=== PATIENT | male | born 1985 | race Caucasian/White ===

== ENCOUNTER 2019-02-02 21:24 | Emergency (ER) | payer MEDICAID ==
[~2019-02-02] VITALS: Ht 172.7 cm; Wt 68.0 kg
[2019-02-02] MEDS ORDERED: IOHEXOL 300 MG/ML 100ML BOTTLE IJ ONE (21:47)
[2019-02-03] MEDS ORDERED: ETOMIDATE (2MG/ML) 20ML VIAL IV ONE (01:49)
[2019-02-03] MEDS ORDERED: LORazepam 2MG/ML-1ML VIAL ONE (02:05)
[2019-02-03] MEDS ORDERED: HYDROmorphone HCL 2 MG/ML VL ONE (02:30)
[2019-02-03] MEDS ORDERED: cefTRIAXone 1GM/50ML D5W 50 ML IV ONE (02:46)
[2019-02-03 04:19] LABS: INR 1.04 (0.9-1.15); Partial Thromboplastin Time 27.2 sec (23.64-32.05)
[2019-02-03 04:33] LABS: Albumin 3.7 g/dL (3.4-5.0); BUN/Creatinine Ratio 19.8; Bilirubin, Total 0.3 mg/dL (0.2-1.0); Calcium 8.9 mg/dL (8.5-10.1); Potassium 3.6 mmol/L (3.5-5.1); Total Protein 6.8 g/dL (6.4-8.2)
[2019-02-03 05:12] LABS: Basophils # (auto) 0 uL; Basophils % (auto) 0.1 % (0.0-2.0); Eosinophils # (auto) 0 uL; Eosinophils % (auto) 0.2 % (0.0-7.0); Hematocrit 46.2 % (41.0-53.0); Hemoglobin 15.4 g/dL (13.5-17.5); Lymphocytes # (auto) 0.7 uL; Lymphocytes % (auto) 5.5 % (10.0-50.0); Mean Corpuscular Hemoglobin 30.2 pg (28.0-32.0); Mean Corpuscular Hgb Conc. 33.3 g/dL (32.0-36.0); Mean Corpuscular Volume 90.5 fL (80.0-100.0); Monocytes # (auto) 0.7 uL; Monocytes % (auto) 5.8 % (0.0-12.0); Neutrophils # (auto) 10.6 uL; Neutrophils % (auto) 88.4 % (37.0-80.0); Platelet Count (auto) 320 10^3/uL (140-450); Red Cell Distribution Width 13.7 % (11.8-14.3)
[2019-02-03 06:53] VITALS: BP 121/88
== END 2019-02-03 07:25 | disposition short-term general hospital (02) ==
LOC: ER 21:31
DX: S22.41XA Multiple fractures of ribs, right side, initial encounter for closed fracture (principal); S22.011A Stable burst fracture of first thoracic vertebra, initial encounter for closed fracture; S22.021A Stable burst fracture of second thoracic vertebra, initial encounter for closed fracture; S22.031A Stable burst fracture of third thoracic vertebra, initial encounter for closed fracture; J93.9 Pneumothorax, unspecified; V29.9XXA Motorcycle rider (driver) (passenger) injured in unspecified traffic accident, initial encounter; Y93.I9 Activity, other involving external motion; Y92.410 Unspecified street and highway as the place of occurrence of the external cause; Y99.8 Other external cause status
CPT/HCPCS: 32551; 36415; 70450; 71045; 71260; 72125; 73030; 74177; 80053; 85025; 85610; 85730; 86850; 86900; 86901; 99152; 99153; 99285; J0696; J1170; J2060; Q9967